=== PATIENT | male | born 1970 ===

== ENCOUNTER 2023-01-27 05:39 | Day surgery (SDC) | payer OTHER ==
[~2023-01-27] VITALS: Ht 165.1 cm; Wt 76.7 kg
[~2023-01-27 05:39] MED LIST: TRIBENZOR 20-51 EACH PO
== END 2023-01-27 11:20 | disposition home or self-care (01) ==
LOC: CIR.AMB 05:39
PROVIDERS: ATTEND Colon & Rectal Surgery
DX: K64.4 Residual hemorrhoidal skin tags (principal); K64.8 Other hemorrhoids; K64.2 Third degree hemorrhoids; K92.1 Melena; Z20.822 Contact with and (suspected) exposure to COVID-19; I10 Essential (primary) hypertension